=== PATIENT | female | born 1960 | race Two or more races ===

== ENCOUNTER 2019-02-03 21:24 | Emergency (ER) | payer SELFPAY ==
[~2019-02-03] VITALS: Ht 152.4 cm; Wt 48.6 kg
[~2019-02-03 21:24] MED LIST: AMOX500T2 PO; LISI10TA PO
[2019-02-03] MEDS ORDERED: METF-960 PO (21:35)
[2019-02-03] MEDS ORDERED: INSLAN SQ (21:35)
[2019-02-03] MEDS ORDERED: LISI-662 PO (21:35)
[2019-02-03] MEDS ORDERED: INSNOV SQ (21:35)
[2019-02-03 21:41] LABS: GLUCOSE,POINT OF CARE 193 MG/DL (70-110)
[2019-02-03 22:07] VITALS: BP 162/99
[2019-02-03] MEDS ORDERED: OxyCODONE HCL 10 MG ER TABLET PO ONE (22:15)
[2019-02-03] MEDS ORDERED: KETOROLAC TROMETHAMINE 30 MG/ML VIAL IM ONE (22:15)
== END 2019-02-03 22:54 | disposition home or self-care (01) ==
LOC: EMS 21:45
DX: M54.42 Lumbago with sciatica, left side (principal); M54.41 Lumbago with sciatica, right side; E11.9 Type 2 diabetes mellitus without complications; I10 Essential (primary) hypertension; Z79.4 Long term (current) use of insulin; Z79.899 Other long term (current) drug therapy; Z79.84 Long term (current) use of oral hypoglycemic drugs; Z88.8 Allergy status to other drugs, medicaments and biological substances
CPT/HCPCS: 82962; 96372; 99283; J1885